=== PATIENT | female | born 1935 | race Caucasian/White ===

== ENCOUNTER 2017-01-16 05:55 | Inpatient (IN) | payer OTHER ==
[2017-01-16] MEDS ORDERED: NS 1,000 ML IV ONE (05:59)
--- NOTE | 2017-01-16 05:59 | EDPHY ---
H & P HPI/ROS: HPI CHIEF COMPLAINT: Vomiting, recent fall, possibly UTI HISTORY OF PRESENT ILLNESS: This patient very pleasant 81-year-old female presents emergency room by EMS from [facility] after staff became concerned after she vomited. Staff became concerned there was blood in her vomit however EMS arrived did see her vomit and they state that she had no blood. She did have a recent fall yesterday sustaining a laceration to the right lateral elbow which was repaired by the nurse on staff there. She had Steri-Strips in place. Unclear if she hit her head. It Is also noted by EMS that she has a foul smell of urine in her room and possible has a urinary tract infection. The history review of systems limited due to patient having severe dementia. The patient is noted to have 2 lacerations right lateral elbow with Steri- Strips in place also ecchymosis over the right lateral hip. No evidence of head trauma. Per EMS and staff she is at her neurological baseline. Of note this patient does have a MOST form: No CPR. Limited other Interventions. Past Medical History: Dementia Past Surgical History: No recent pertinent surgical history. Social History: Lives at [facility] Family History: Noncontributory ROS REVIEW OF SYSTEMS: This limited due to patient's underlying mental state Exam Constitutional triage nursing summary reviewed, vital signs reviewed, awake/ alert. Eyes normal conjunctivae and sclera, EOMI, PERRLA. HENT normal inspection, atraumatic, moist mucus membranes, no epistaxis, neck supple/ no meningismus, no raccoon eyes. Respiratory clear to auscultation bilaterally, normal breath sounds, no respiratory distress, no wheezing. Cardiovascular rate normal, regular rhythm, no murmur, no edema, distal pulses normal. Gastrointestinal soft, non-tender, no rebound, no guarding, normal bowel sounds, no distension, no pulsatile mass. Genitourinary no CVA tenderness. Musculoskeletal no midline vertebral tenderness, full range of motion, no calf swelling, no tenderness of extremities, no meningismus, good pulses, neurovascularly intact. Skin lacerations 2 of them on the right lateral elbow with Steri-Strips in place, no signs of infection, also ecchymosis right lateral hip, pink, warm, & dry, no rash, skin atraumatic. Neurologic awake, alert and oriented x 1, AAOx1, moves all 4 extremities equally, motor intact, sensory intact, CN II-XII intact, normal cerebellar, normal vision, normal speech. Psychiatric normal mood/affect. Heme/Lymph/Immune no lymphadenopathy. Differential Diagnosis:Includes but is not limited to in a particular order, dehydration, electrolyte abnormality, urinary tract infection, vomiting from recent fall with head injury, elbow fracture, hip fracture Medical Decision Making: This patient had an IV established obtain blood work, she will be gently hydrated, will check urinalysis for UTI, patient had a CT scan of the head due to recent fallen vomiting, x-ray of the right elbow on x- ray the right hip. Re-evaluation: ED x-ray right elbow: Negative For acute fracture. Image interpreted by myself. ED x-ray right hip: Negative for acute fracture. Image interpreted by myself. CT scan of the Head w/o contrast for trauma. The results of the study are negative for acute traumatic abnormality The study was read by Dr. Tamez. I viewed the images myself on the PACS system. 0719: patient's urinalysis indicates that she has a urinary tract infection. Urine cultures been sent. 2 g IV Rocephin has been ordered. This time she is hemodynamically stable no fever, no evidence of sepsis. 0746: Spoke with the hospitalist service Arin C[employer]SEM[employer]ER, agrees to admit the patient patient be admitted for dehydration, nausea vomiting and UTI. Urine cultures been sent she has been afebrile here does have a mild leukocytosis. Given her state of dementia, dehydration generalized weakness and urinary tract infection should be admitted to the hospitalist service for IV hydration and antibiotic coverage of her UTI. Here in the emergency room she received 2 g IV Rocephin, IV fluids and IV Zofran she is resting comfortably at this time no complaints. She does have severe dementia. Limited history review of systems due to underlying mental status. Source: Patient, EMS Constitutional: Initial Vital Signs Temperature (C) 36.4 C 01/16/17 05:55 Heart Rate 69 01/16/17 05:55 Respiratory Rate 18 01/16/17 05:55 Blood Pressure 172/51 H 01/16/17 05:55 O2 Sat (%) 94 01/16/17 05:55 O2 Delivery Mode Nasal Cannula O2 (L/minute) 2 Allergies/Adverse Reactions: Sulfa (Sulfonamide Antibiotics) Allergy (Verified 01/16/17 06:11) Home Medications: Medication Instructions Recorded Dulcolax 01/16/17 Lexapro 01/16/17 MOTRIN 01/16/17 Multi-Vitamin Daily 01/16/17 Rivastigmine 01/16/17 Sennosides 01/16/17 Tussin 01/16/17 Vitamin B Complex 01/16/17 Medical Decision Making - Data Points Laboratory Results: Laboratory Results 01/16/17 06:00 01/16/17 06:00 01/16/17 01/16/17 01/16/17 06:45 06:00 06:00 WBC 11.45 10^3/uL H 10^3/uL (3.80-9.50) RBC 4.68 10^6/uL 10^6/uL (4.18-5.33) Hgb 13.7 g/dL g/dL (12.6-16.3) Hct 41.2 % % (38.0-47.0) MCV 88.0 fL fL (81.5-99.8) MCH 29.3 pg pg (27.9-34.1) MCHC 33.3 g/dL g/dL (32.4-36.7) RDW 13.7 % % (11.5-15.2) Plt Count 291 10^3/uL 10^3/uL (150-400) MPV 9.6 fL fL (8.7-11.7) Neut % (Auto) 83.1 % H % (39.3-74.2) Lymph % (Auto) 10.1 % L % (15.0-45.0) Cloud % (Auto) 6.2 % % (4.5-13.0) Eos % (Auto) 0.0 % L % (0.6-7.6) Baso % (Auto) 0.2 % L % (0.3-1.7) Nucleat RBC Rel Count 0.0 % % (0.0-0.2) Absolute Neuts (auto) 9.51 10^3/uL H 10^3/uL (1.70-6.50) Absolute Lymphs (auto) 1.16 10^3/uL 10^3/uL (1.00-3.00) Absolute Monos (auto) 0.71 10^3/uL 10^3/uL (0.30-0.80) Absolute Eos (auto) 0.00 10^3/uL L 10^3/uL (0.03-0.40) Absolute Basos (auto) 0.02 10^3/uL 10^3/uL (0.02-0.10) Absolute Nucleated RBC 0.00 10^3/uL 10^3/uL (0-0.01) Immature Gran % 0.4 % % (0.0-1.1) Immature Gran # 0.05 10^3/uL 10^3/uL (0.00-0.10) Sodium 139 mEq/L mEq/L (134-144) Potassium 5.0 mEq/L mEq/L (3.5-5.2) Chloride 102 mEq/L mEq/L (97-110) Carbon Dioxide 25 mEq/l mEq/l (22-31) Anion Gap 12 mEq/L mEq/L (8-16) BUN 30 mg/dL H mg/dL (7-23) Creatinine 1.0 mg/dL mg/dL (0.6-1.0) Estimated GFR 53 Glucose 142 mg/dL H mg/dL (70-100) Calcium 9.6 mg/dL mg/dL (8.5-10.4) Total Bilirubin 0.9 mg/dL mg/dL (0.1-1.4) Conjugated Bilirubin 0.3 mg/dL mg/dL (0.0-0.5) Unconjugated Bilirubin 0.6 mg/dL mg/dL (0.0-1.1) AST 29 IU/L IU/L (14-46) ALT 28 IU/L IU/L (9-52) Alkaline Phosphatase 64 IU/L IU/L (38-126) Total Protein 7.7 g/dL g/dL (6.3-8.2) Albumin 4.5 g/dL g/dL (3.5-5.0) Lipase 347.0 IU/L H IU/L (23-300) Urine Color LT. YELLOW Urine Appearance CLOUDY Urine pH 8.0 H (5.0-7.5) Ur Specific [place] 1.010 (1.002-1.030) Urine Protein NEGATIVE (NEGATIVE) Urine Ketones NEGATIVE (NEGATIVE) Urine Blood 3+ H (NEGATIVE) Urine Nitrate NEGATIVE (NEGATIVE) Urine Bilirubin NEGATIVE (NEGATIVE) Urine Urobilinogen 0.2 EU EU (0.2-1.0) Ur Leukocyte Esterase 2+ H (NEGATIVE) Urine RBC 3-5 /hpf H /hpf (0-3) Urine WBC 15-25 /hpf H /hpf (0-3) Ur Epithelial Cells 1+ /lpf /lpf (NONE-1+) Urine Bacteria TRACE /hpf H /hpf (NONE SEEN) Urine Mucus 2+ /lpf H /lpf (NONE-1+) Ur Culture Indicated? INDICATED H (NI) Urine Glucose NEGATIVE (NEGATIVE) Medications Given: Discontinued Medications Sodium Chloride (Ns) 1,000 mls @ 0 mls/hr IV ONCE ONE PRN Reason: Wide Open Stop: 01/16/17 06:00 Last Admin: 01/16/17 06:57 Dose: 1,000 mls Ceftriaxone Sodium 2 gm/ (Dextrose) 50 mls @ 100 mls/hr IV EDNOW ONE PRN Reason: Protocol Stop: 01/16/17 07:21 Last Admin: 01/16/17 07:28 Dose: 50 mls Ondansetron HCl (Zofran) 4 mg IVP EDNOW ONE Stop: 01/16/17 06:02 Last Admin: 01/16/17 06:57 Dose: 4 mg Departure - Departure Disposition: Home, Routine, Self-Care Clinical Impression: Dehydration Vomiting Qualifiers: Vomiting type: unspecified Vomiting Intractability: intractable Nausea presence : with nausea Qualified Code(s): R11.2 - Nausea with vomiting, unspecified UTI (urinary tract infection) Qualifiers: Urinary tract infection type: acute cystitis Hematuria presence: with hematuria Qualified Code(s): N30.01 - Acute cystitis with hematuria Condition: Good Referrals: Dallas So MD [Primary Care Provider] - As per Instructions
[2017-01-16] MEDS ORDERED: ONDANSETRON 4 MG/2 ML VIAL IVP ONE (06:01)
[2017-01-16 06:23] LABS: % IMMATURE GRANULYOCYTES 0.4 % (0.0-1.1); ABSOLUTE IMMATURE GRANULOCYTES 0.05 10^3/uL (0.00-0.10); ADD DIFF? NO; ADD MORPH? NO; ADD SCAN? NO; ATYPICAL LYMPHOCYTE FLAG 0 (0-99); FRAGMENT RBC FLAG 0 (0-99); HEMATOCRIT 41.2 % (38.0-47.0); HEMOGLOBIN 13.7 g/dL (12.6-16.3); LEFT SHIFT FLG 0 (0-99); LIPEMIA HEMOLYSIS FLAG 80 (0-99); MEAN CELL HEMOGLOBIN 29.3 pg (27.9-34.1); MEAN CELL HEMOGLOBIN CONCENTR. 33.3 g/dL (32.4-36.7); MEAN PLATELET VOLUME 9.6 fL (8.7-11.7); PLATELET CLUMPS FLAG 20 (0-99); PLATELET COUNT 291 10^3/uL (150-400); RED BLOOD CELL COUNT 4.68 10^6/uL (4.18-5.33); RED CELL DISTRIBUTION WIDTH 13.7 % (11.5-15.2)
[2017-01-16] MEDS ORDERED: cefTRIAXone 2 GM in D5W 50 ML IV ONE (06:52)
[2017-01-16 06:57] LABS: ALANINE AMINOTRANSFERASE 28 IU/L (9-52); ALBUMIN 4.5 g/dL (3.5-5.0); ALKALINE PHOSPHATASE 64 IU/L (38-126); ANION GAP 12 mEq/L (8-16); ASPARTATE AMINOTRANSFERASE 29 IU/L (14-46); BILIRUBIN,TOTAL 0.9 mg/dL (0.1-1.4); BILIRUBIN-CONJUGATED 0.3 mg/dL (0.0-0.5); BILIRUBIN-UNCONJUGATED 0.6 mg/dL (0.0-1.1); CALCIUM 9.6 mg/dL (8.5-10.4); CARBON DIOXIDE 25 mEq/l (22-31); CHLORIDE 102 mEq/L (97-110); GLOMERULAR FILTRATION RATE 53; GLUCOSE 142 mg/dL (70-100); SODIUM 139 mEq/L (134-144); TOTAL PROTEIN 7.7 g/dL (6.3-8.2)
[2017-01-16 07:17] LABS: COLOR LT. YELLOW; LEUKOCYTE ESTERASE,URINE 2+ (NEGATIVE); NITRITE,URINE NEGATIVE (NEGATIVE)
[2017-01-16 07:23] LABS: MUCUS 2+ /lpf (NONE-1+)
[2017-01-16 07:24] LABS: BACTERIA TRACE /hpf (NONE SEEN); WBC,URINE 15-25 /hpf (0-3)
[2017-01-16] MEDS ORDERED: ONDANSETRON DISINTEGRATING 4 MG TAB PO PRN (10:45)
[2017-01-16] MEDS ORDERED: ONDANSETRON 4 MG/2 ML VIAL IVP PRN (10:45)
[2017-01-16] MEDS ORDERED: ACETAMINOPHEN 325 MG TAB PO PRN (10:45)
[2017-01-16] MEDS ORDERED: NS 1,000 ML IV SCH (10:45)
--- NOTE | 2017-01-16 10:58 | PDGENHP ---
History and Physical - Chief Complaint VOMITING - History of Present Illness 81 YO F with hx of advanced dementia who lives at [facility] brought into the hospital with weakness and vomiting. She was found to have dehydration and a UTI in the E.D. and started on Rocephin and IVF. No further emesis. She had a mechanical fall reported yesterday. Unclear if there was LOC. Imaging including Head CT unremarkable. History is difficult as the pt has advance dementia. Her home care physical therapist is with her but PMHx is still limited. She denies any pain, nausea, vomiting, CP, or other. ROS: per HPI otherwise unable to obtain PMHx: Advance dementia, presumed depression (based on home meds) PSurgicalHx: unknown Soc: unknown. Lives at [facility] FmHx: unknown O: VS: HTN NAD, APPEARS COMFORTABLE RRR MM DRY CTA B S/NT/ND NO EDEMA LABS REVIEWED I/P #UTI #DEHYDRATION #HTN, UNCLEAR CHRONICITY. 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 W/U OTHERWISE WITH NO FURTHER EVIDENCE OF TRAUMA #ADVANCE DEMENTIA #NAUSE AND VOMITING #Depression PLAN: Admit Rocephin, await cultures IVF Antiemetics PT/OT home meds as appropriate Lovenox for DVT proph code status: unclear total care time spent on admission is one hour History Information - Allergies/Home Medication List Allergies/Adverse Reactions: Sulfa (Sulfonamide Antibiotics) Allergy (Verified 01/16/17 06:11) Home Medications: Acetaminophen [Tylenol 325mg (*)] 650 mg PO Q4H PRN 01/16/17 [Last Taken Unknown ] Bisacodyl [Dulcolax] 10 mg RC Q24H 01/16/17 [Last Taken Unknown] Calcium Carb W/Vit D [Calcium Carb W/Vit D 500/200 (*)] 500 mg PO DAILY [Last Taken Unknown] Citalopram [CeleXA] 20 mg PO DAILY 01/16/17 [Last Taken Unknown] Cyanocobalamin [Vitamin B12 (*)] 1,000 mcg PO DAILY 01/16/17 [Last Taken Unknown ] Ibuprofen [Motrin (*)] 400 mg PO Q8H PRN 01/16/17 [Last Taken Unknown] Levothyroxine [Synthroid 50 mcg (*)] 50 mcg PO DAILY06 01/16/17 [Last Taken Unknown] Lisinopril [Zestril 10 mg (*)] 10 mg PO DAILY 01/16/17 [Last Taken Unknown] Multivitamins [Multivitamin (*)] 1 each PO DAILY 01/16/17 [Last Taken Unknown] QUEtiapine FUMARATE [Seroquel 25 mg (*)] 25 mg PO HS 01/16/17 [Last Taken Unknown] Rivastigmine 1 each TD DAILY 01/16/17 [Last Taken Unknown] Sennosides [Senokot] 8.6 mg PO Q3D PRN 01/16/17 [Last Taken Unknown] guaiFENesin/CODEINE PHOSPHATE [G Tussin AC Liquid] 10 ml PO Q4H PRN 01/16/17 [ Last Taken Unknown] I have personally reviewed and updated: medical history - Social History Smoking Status: Unknown if ever smoked Physical Exam Temp Pulse Resp BP Pulse Ox 36.5 C 78 18 184/127 H 99 01/16/17 09:09 01/16/17 09:09 01/16/17 09:09 01/16/17 09:09 01/16/17 09:09 O2 (L/minute) 2 Lab Data & Imaging Review 01/16/17 06:00 01/16/17 06:00 WBC 11.45 10^3/uL (3.80-9.50) H 01/16/17 06:00 RBC 4.68 10^6/uL (4.18-5.33) 01/16/17 06:00 Hgb 13.7 g/dL (12.6-16.3) 01/16/17 06:00 Hct 41.2 % (38.0-47.0) 01/16/17 06:00 MCV 88.0 fL (81.5-99.8) 01/16/17 06:00 MCH 29.3 pg (27.9-34.1) 01/16/17 06:00 MCHC 33.3 g/dL (32.4-36.7) 01/16/17 06:00 RDW 13.7 % (11.5-15.2) 01/16/17 06:00 Plt Count 291 10^3/uL (150-400) 01/16/17 06:00 MPV 9.6 fL (8.7-11.7) 01/16/17 06:00 Neut % (Auto) 83.1 % (39.3-74.2) H 01/16/17 06:00 Lymph % (Auto) 10.1 % (15.0-45.0) L 01/16/17 06:00 [place] % (Auto) 6.2 % (4.5-13.0) 01/16/17 06:00 Eos % (Auto) 0.0 % (0.6-7.6) L 01/16/17 06:00 Baso % (Auto) 0.2 % (0.3-1.7) L 01/16/17 06:00 Nucleat RBC Rel Count 0.0 % (0.0-0.2) 01/16/17 06:00 Absolute Neuts (auto) 9.51 10^3/uL (1.70-6.50) H 01/16/17 06:00 Absolute Lymphs (auto) 1.16 10^3/uL (1.00-3.00) 01/16/17 06:00 Absolute Monos (auto) 0.71 10^3/uL (0.30-0.80) 01/16/17 06:00 Absolute Eos (auto) 0.00 10^3/uL (0.03-0.40) L 01/16/17 06:00 Absolute Basos (auto) 0.02 10^3/uL (0.02-0.10) 01/16/17 06:00 Absolute Nucleated RBC 0.00 10^3/uL (0-0.01) 01/16/17 06:00 Immature Gran % 0.4 % (0.0-1.1) 01/16/17 06:00 Immature Gran # 0.05 10^3/uL (0.00-0.10) 01/16/17 06:00 Sodium 139 mEq/L (134-144) 01/16/17 06:00 Potassium 5.0 mEq/L (3.5-5.2) 01/16/17 06:00 Chloride 102 mEq/L (97-110) 01/16/17 06:00 Carbon Dioxide 25 mEq/l (22-31) 01/16/17 06:00 Anion Gap 12 mEq/L (8-16) 01/16/17 06:00 BUN 30 mg/dL (7-23) H 01/16/17 06:00 Creatinine 1.0 mg/dL (0.6-1.0) 01/16/17 06:00 Estimated GFR 53 01/16/17 06:00 Glucose 142 mg/dL (70-100) H 01/16/17 06:00 Calcium 9.6 mg/dL (8.5-10.4) 01/16/17 06:00 Total Bilirubin 0.9 mg/dL (0.1-1.4) 01/16/17 06:00 Conjugated Bilirubin 0.3 mg/dL (0.0-0.5) 01/16/17 06:00 Unconjugated Bilirubin 0.6 mg/dL (0.0-1.1) 01/16/17 06:00 AST 29 IU/L (14-46) 01/16/17 06:00 ALT 28 IU/L (9-52) 01/16/17 06:00 Alkaline Phosphatase 64 IU/L (38-126) 01/16/17 06:00 Total Protein 7.7 g/dL (6.3-8.2) 01/16/17 06:00 Albumin 4.5 g/dL (3.5-5.0) 01/16/17 06:00 Lipase 347.0 IU/L (23-300) H 01/16/17 06:00 Urine Color LT. YELLOW 01/16/17 06:45 Urine Appearance CLOUDY 01/16/17 06:45 Urine pH 8.0 (5.0-7.5) H 01/16/17 06:45 Ur Specific [place] 1.010 (1.002-1.030) 01/16/17 06:45 Urine Protein NEGATIVE (NEGATIVE) 01/16/17 06:45 Urine Ketones NEGATIVE (NEGATIVE) 01/16/17 06:45 Urine Blood 3+ (NEGATIVE) H 01/16/17 06:45 Urine Nitrate NEGATIVE (NEGATIVE) 01/16/17 06:45 Urine Bilirubin NEGATIVE (NEGATIVE) 01/16/17 06:45 Urine Urobilinogen 0.2 EU (0.2-1.0) 01/16/17 06:45 Ur Leukocyte Esterase 2+ (NEGATIVE) H 01/16/17 06:45 Urine RBC 3-5 /hpf (0-3) H 01/16/17 06:45 Urine WBC 15-25 /hpf (0-3) H 01/16/17 06:45 Ur Epithelial Cells 1+ /lpf (NONE-1+) 01/16/17 06:45 Urine Bacteria TRACE /hpf (NONE SEEN) H 01/16/17 06:45 Urine Mucus 2+ /lpf (NONE-1+) H 01/16/17 06:45 Ur Culture Indicated? INDICATED (NI) H 01/16/17 06:45 Urine Glucose NEGATIVE (NEGATIVE) 01/16/17 06:45 Assessment & Plan Assessment: Dehydration (Acute) UTI (urinary tract infection) (Acute) Vomiting (Acute)
[2017-01-16] MEDS: BISACODYL 10 MG SUPP PR SCH (12:05)
[2017-01-16] MEDS: IPRATROPIUM/ALBUTEROL 3 ML DEYVIAL IH SCH ×2 (13:23→15:19)
[2017-01-16] MEDS: LISINOPRIL 10 MG TAB PO SCH (16:12)
[2017-01-16] MEDS: LEVOTHYROXINE 50 MCG TAB PO SCH (16:12)
[2017-01-16] MEDS: QUEtiapine FUMARATE 25 MG TAB PO SCH (20:47)
--- NOTE | 2017-01-16 21:47 | SOAPPROG ---
DARINEL Progress Note Assessment/Plan: Assessment: Plan: 01/16/17 21:42 81 YO F with hx of advanced dementia who lives at [facility]. Report of a fall yesterday. She was scanned for Right side, Hip, Elbow, shoulder. NV is intact per exam in the ED. Xr shows fracture of right humerus base of neck, with shortening and angulation. She can move fingers and (per nurse in the floor at 21:00) is well managed pain [place], and doesn't complain, although guarding the limb. She answers "No" for questions regarding pain at rest. Due to her dementia and type of fracture, this should be managed conservatively , with a sling. We will follow up on her again tomorrow morning. Dr Danielle Objective: Vital Signs Temp Pulse Resp BP Pulse Ox 37.2 C 74 18 145/52 H 95 01/16/17 21:15 01/16/17 21:15 01/16/17 21:15 01/16/17 21:15 01/16/17 21:15 01/15/17 01/16/17 01/17/17 05:59 05:59 05:59 Intake Total 1312 Balance 1312 ICD10 Worksheet Patient Problems: Problems Problem Status Onset Dehydration Acute UTI (urinary tract infection) Acute Vomiting Acute
[2017-01-17] MEDS: IPRATROPIUM/ALBUTEROL 3 ML DEYVIAL IH SCH ×2 (00:01→06:04)
[2017-01-17] MEDS: LEVOTHYROXINE 50 MCG TAB PO SCH ×2 (05:53→06:00)
[2017-01-17] MEDS: HYDROCODONE/APAP 5/325 TAB PO PRN ×2 (05:55→10:45)
[2017-01-17 06:04] LABS: % IMMATURE GRANULYOCYTES 0.4 % (0.0-1.1); ABSOLUTE IMMATURE GRANULOCYTES 0.03 10^3/uL (0.00-0.10); ADD DIFF? NO; ADD MORPH? NO; ADD SCAN? NO; ATYPICAL LYMPHOCYTE FLAG 10 (0-99); FRAGMENT RBC FLAG 0 (0-99); HEMATOCRIT 35.1 % (38.0-47.0); HEMOGLOBIN 11.6 g/dL (12.6-16.3); LEFT SHIFT FLG 0 (0-99); LIPEMIA HEMOLYSIS FLAG 80 (0-99); MEAN CELL HEMOGLOBIN 28.6 pg (27.9-34.1); MEAN CELL VOLUME 86.5 fL (81.5-99.8); MEAN PLATELET VOLUME 9.7 fL (8.7-11.7); PLATELET CLUMPS FLAG 10 (0-99); PLATELET COUNT 240 10^3/uL (150-400); RED BLOOD CELL COUNT 4.06 10^6/uL (4.18-5.33); RED CELL DISTRIBUTION WIDTH 14.1 % (11.5-15.2)
[2017-01-17 06:25] LABS: ANION GAP 6 mEq/L (8-16); CALCIUM 8.9 mg/dL (8.5-10.4); CARBON DIOXIDE 27 mEq/l (22-31); CHLORIDE 105 mEq/L (97-110); CREATININE 0.9 mg/dL (0.6-1.0); GLOMERULAR FILTRATION RATE > 60; GLUCOSE 99 mg/dL (70-100); MAGNESIUM 1.9 mg/dL (1.6-2.3); POTASSIUM 4.5 mEq/L (3.5-5.2); SODIUM 138 mEq/L (134-144)
[2017-01-17] MEDS: LISINOPRIL 10 MG TAB PO SCH (08:45)
[2017-01-17] MEDS: CITALOPRAM 20 MG TAB PO SCH (08:51)
[2017-01-17] MEDS: CYANO/VITAMIN B12 1000 MCG TAB PO SCH (08:53)
[2017-01-17] MEDS: CALCIUM CARB W/VIT D 500 MG TAB PO SCH (08:53)
[2017-01-17] MEDS: ENOXAPARIN 40 MG/0.4 ML SYR SC SCH (08:54)
[2017-01-17] MEDS: RIVASTIGMINE TD SCH (08:56)
--- NOTE | 2017-01-17 09:27 | HOSPPROG ---
Hospitalist Progress Note Assessment/Plan: I/P #UTI #DEHYDRATION #HTN, UNCLEAR CHRONICITY. 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 Conservative mgmt given advanced dementia. Sling. Pain is well controlled #ADVANCE DEMENTIA #NAUSE AND VOMITING #DEPRESSION PLAN: Rocephin, await cultures IVF, finish IVF as ordered Antiemetics Conservative ortho mgmt PT/OT home meds as appropriate Lovenox for DVT proph S: Doing well No pain reported O: VSS NAD AAOx3 RRR CTAB S/NT/ND LABS: REVIEWED Objective: Vital Signs Temp Pulse Resp BP Pulse Ox 36.9 C 64 65 H 158/102 H 95 01/17/17 08:00 01/17/17 08:00 01/17/17 08:00 01/17/17 08:45 01/17/17 08:00 Laboratory Results 01/17/17 05:23 01/17/17 05:23 01/16/17 01/17/17 01/18/17 05:59 05:59 05:59 Intake Total 1312 Balance 1312 ICD10 Worksheet Patient Problems: Problems Problem Status Onset Dehydration Acute UTI (urinary tract infection) Acute Vomiting Acute
--- NOTE | 2017-01-17 10:12 | SOAPPROG ---
DARINEL Progress Note Assessment/Plan: Assessment: 81 YO F with hx of advanced dementia. Fell and sustained Right proximal humerus fracture. Plan: Due to her dementia and type of fracture, this should be managed conservatively , with a sling. Pt can follow-up with Dr. Danielle in 4 weeks. 01/17/17 10:12 Subjective: Pt demented, not responding much to questions. She does say "No" when asked if she has pain. Objective: Vital Signs Temp Pulse Resp BP Pulse Ox 36.9 C 64 65 H 158/102 H 95 01/17/17 08:00 01/17/17 08:00 01/17/17 08:00 01/17/17 08:45 01/17/17 08:00 Laboratory Results 01/17/17 05:23 01/17/17 05:23 01/16/17 01/17/17 01/18/17 05:59 05:59 05:59 Intake Total 1312 Balance 1312 RUE: Palpable radial pulse Moves fingers on command Does not respond when asked about sensation Sling in place - Time Spent With Patient Time Spent With Patient: 10 minutes ICD10 Worksheet Patient Problems: Problems Problem Status Onset Vomiting Acute UTI (urinary tract infection) Acute Dehydration Acute
[2017-01-17] MEDS: BISACODYL 10 MG SUPP PR SCH (12:55)
[2017-01-17] MEDS: LORazepam 2 MG/ML INJ IVP PRN (16:33)
[2017-01-17] MEDS: hydrALAZINE 20 MG/ML VIAL IVP PRN (17:31)
[2017-01-17] MEDS: QUEtiapine FUMARATE 25 MG TAB PO SCH (20:13)
[2017-01-18] MEDS: LEVOTHYROXINE 50 MCG TAB PO SCH (06:06)
[2017-01-18] MEDS: HYDROCODONE/APAP 5/325 TAB PO PRN (06:06)
--- NOTE | 2017-01-18 10:30 | HOSPPROG ---
Hospitalist Progress Note Assessment/Plan: I/P 81 yo female with advance dementia admitted following a reported mechanical fall with weakness and worsening mentation. She was found to have dehydration, UTI, and R proximal humerus fracture. Hydration status is now normal. She is being treated with Rocephin for UTI and cx's are pending. The Humerus fx is being treated conservatively and she will need f/u with Dr. Ríos in 4 weeks. Today she continues to have some weakness and will be kept overnight for additional mgmt including IV abx and PT/OT. She will likely be ready for discharge 12/30. #UTI, On Rocephin Day 3, can likely stop on discharge #DEHYDRATION, resolved, IVF to stop #HTN (chronic), on Lisinopril #WEAKNESS AND DECONDITIONING, improving with PT/OT #S/P REPORTED MECHANICAL WITH LACERATION TO RIGHT ELBOW & PROXIMAL RIGHT FEMUR FRACTURE -Fracture mgmt per Ortho. Conservative mgmt given advanced dementia. Sling. Pain is well controlled #ADVANCE DEMENTIA, Lives in a dementia unit #NAUSE AND VOMITING, resolved #HYPOTHYROIDISM: on synthroid #DEPRESSION #Lovenox for DVT proph S: The patient is resting currently No overnight events No pain reported Her caregiver is at bedside. She reports that she is improving but still weak and would like additional PT before discharge. She is also requesting that we minimize her narcotics if they are not needed. O: VSS and reviewed NAD Mucus Membranes are moist RRR CTAB S/NT/ND No lower extremity edema Objective: Vital Signs Temp Pulse Resp BP Pulse Ox 36.4 C 65 14 110/52 L 92 01/18/17 08:00 01/18/17 08:00 01/18/17 08:00 01/18/17 08:00 01/18/17 08:00 Laboratory Results 01/17/17 05:23 01/17/17 05:23 01/17/17 01/18/17 01/19/17 05:59 05:59 05:59 Intake Total 1312 100 Balance 1312 100 - Time Spent With Patient Time Spent with Patient: greater than 35 minutes Time Spent with Patient: Greater than 35 minutes spent on this patients care, greater than 50% of time spent counseling, educating, and coordinating care regarding the above mentioned plan. - Physical Exam Constitutional: no apparent distress, appears nourished, not in pain Eyes: PERRL, anicteric sclera, EOMI Ears, Nose, Mouth, Throat: moist mucous membranes, hearing normal, ears appear normal, no oral mucosal ulcers Genitourinary: no bladder fullness, no bladder tenderness, no renal bruits Skin: no rashes or abrasions, no fluctuance, no induration ICD10 Worksheet Patient Problems: Problems Problem Status Onset Dehydration Acute UTI (urinary tract infection) Acute Vomiting Acute
[2017-01-18] MEDS: LISINOPRIL 10 MG TAB PO SCH (12:29)
[2017-01-18] MEDS: CITALOPRAM 20 MG TAB PO SCH (12:30)
[2017-01-18] MEDS: ENOXAPARIN 40 MG/0.4 ML SYR SC SCH (12:34)
[2017-01-18] MEDS: BISACODYL 10 MG SUPP PR SCH (12:37)
[2017-01-18] MEDS: CALCIUM CARB W/VIT D 500 MG TAB PO SCH (12:37)
[2017-01-18] MEDS: CYANO/VITAMIN B12 1000 MCG TAB PO SCH (12:37)
[2017-01-18] MEDS: RIVASTIGMINE TD SCH (13:24)
[2017-01-18] MEDS: LORazepam 2 MG/ML INJ IVP PRN (16:17)
[2017-01-18] MEDS: QUEtiapine FUMARATE 25 MG TAB PO SCH (21:01)
[2017-01-19] MEDS: LEVOTHYROXINE 50 MCG TAB PO SCH (06:46)
[2017-01-19] MEDS: CALCIUM CARB W/VIT D 500 MG TAB PO SCH (09:59)
[2017-01-19] MEDS: CYANO/VITAMIN B12 1000 MCG TAB PO SCH (09:59)
[2017-01-19] MEDS: CITALOPRAM 20 MG TAB PO SCH (09:59)
[2017-01-19] MEDS: LISINOPRIL 10 MG TAB PO SCH (09:59)
[2017-01-19] MEDS: ENOXAPARIN 40 MG/0.4 ML SYR SC SCH (10:00)
[2017-01-19] MEDS: RIVASTIGMINE TD SCH (10:01)
[2017-01-19] MEDS: BISACODYL 10 MG SUPP PR SCH (10:28)
[2017-01-19] MEDS: LORazepam 2 MG/ML INJ IVP PRN ×2 (11:12→17:26)
[2017-01-19] MEDS: HYDROCODONE/APAP 5/325 TAB PO PRN ×3 (11:12→22:36)
[2017-01-19] MEDS: CHOLECALCIFEROL VIT D3 1,000 UNITS TAB PO SCH (17:26)
[2017-01-19] MEDS: NS 1,000 ML IV SCH (22:35)
[2017-01-19] MEDS: QUEtiapine FUMARATE 25 MG TAB PO SCH (22:36)
[2017-01-20] MEDS: NS 1,000 ML IV SCH (05:17)
[2017-01-20] MEDS: LEVOTHYROXINE 50 MCG TAB PO SCH (05:17)
--- NOTE | 2017-01-20 09:07 | HOSPPROG ---
Hospitalist Progress Note Assessment/Plan: 81 yo female with advance dementia admitted following a reported mechanical fall with weakness and worsening mentation. She was found to have dehydration, UTI, and R proximal humerus fracture. Hydration status is now normal. She is being treated with Rocephin for UTI and cx's are pending. The Humerus fx is being treated conservatively and she will need f/u with Dr. Ríos in 4 weeks. Today she continues to have some weakness and will be kept overnight for additional mgmt including IV abx and PT/OT. She will likely be ready for discharge 12/30. UTI, On Rocephin Day 02/27, can likely stop on discharge URINE CULTURE NOT NECESSARILY C/W INFECTION DEHYDRATION, resolved, dc IVF HTN (chronic), on Lisinopril WEAKNESS AND DECONDITIONING, improving with PT/OT S/P REPORTED MECHANICAL WITH LACERATION TO RIGHT ELBOW & PROXIMAL RIGHT FEMUR FRACTURE Fracture mgmt per Ortho. Conservative mgmt given advanced dementia. Sling. Pain is well controlled hand neurovascularly intact ADVANCE DEMENTIA, Lives in a dementia unit NAUSE AND VOMITING, resolved HYPOTHYROIDISM: on synthroid DEPRESSION Lovenox for DVT proph Subjective: THIS NOTE IS FOR DATE OF SERVICE 01/19/17! Objective: Vital Signs Temp Pulse Resp BP Pulse Ox 35.8 C L 63 16 173/64 H 91 L 01/20/17 08:38 01/20/17 08:38 01/20/17 08:38 01/20/17 08:38 01/20/17 08:38 01/19/17 01/20/17 01/21/17 05:59 05:59 05:59 Intake Total 1536 1175 Balance 1536 1175 - Physical Exam Constitutional: no apparent distress Eyes: PERRL, anicteric sclera Ears, Nose, Mouth, Throat: hearing normal Cardiovascular: regular rate and rhythym, no murmur, rub, or gallop Respiratory: no respiratory distress, no rales or rhonchi Gastrointestinal: normoactive bowel sounds, soft, non-tender abdomen Genitourinary: No bedoya in urethra Skin: warm Musculoskeletal: other (r HAND NEUROVASCULARLY INTacT) Neurologic: sensation intact bilaterally, No AAOx3 Psychiatric: No interacting appropriately ICD10 Worksheet Patient Problems: Problems Problem Status Onset Dehydration Acute UTI (urinary tract infection) Acute Vomiting Acute
[2017-01-20] MEDS: CITALOPRAM 20 MG TAB PO SCH (09:35)
[2017-01-20] MEDS: CALCIUM CARB W/VIT D 500 MG TAB PO SCH (09:35)
[2017-01-20] MEDS: CYANO/VITAMIN B12 1000 MCG TAB PO SCH (09:35)
[2017-01-20] MEDS: LISINOPRIL 10 MG TAB PO SCH (09:35)
[2017-01-20] MEDS: CHOLECALCIFEROL VIT D3 1,000 UNITS TAB PO SCH (09:35)
[2017-01-20] MEDS: ENOXAPARIN 40 MG/0.4 ML SYR SC SCH (09:36)
[2017-01-20] MEDS: RIVASTIGMINE TD SCH (09:36)
[2017-01-20] MEDS: BISACODYL 10 MG SUPP PR SCH (10:12)
[2017-01-20] MEDS: LORazepam 2 MG/ML INJ IVP PRN (12:33)
[2017-01-20] MEDS: HYDROCODONE/APAP 5/325 TAB PO PRN ×2 (12:33→20:24)
--- NOTE | 2017-01-20 12:53 | HOSPPROG ---
Hospitalist Progress Note Assessment/Plan: 81 yo female with advance dementia admitted following a reported mechanical fall with weakness and worsening mentation. She was found to have dehydration, UTI, and R proximal humerus fracture. Hydration status is now normal. She is being treated with Rocephin for UTI and cx's are pending. The Humerus fx is being treated conservatively and she will need f/u with Dr. Ríos in 4 weeks. Today she continues to have some weakness and will be kept overnight for additional mgmt including IV abx and PT/OT. She will likely be ready for discharge 12/30. UTI, On Rocephin Day 03/29, can likely stop on discharge URINE CULTURE NOT NECESSARILY C/W INFECTION DEHYDRATION, resolved, dc IVF HTN (chronic), on Lisinopril WEAKNESS AND DECONDITIONING, improving with PT/OT S/P REPORTED MECHANICAL WITH LACERATION TO RIGHT ELBOW & PROXIMAL RIGHT FEMUR FRACTURE Fracture mgmt per Ortho. Conservative mgmt given advanced dementia. Sling. Pain is well controlled hand neurovascularly intact ADVANCE DEMENTIA, Lives in a dementia unit NAUSE AND VOMITING, resolved HYPOTHYROIDISM: on synthroid DEPRESSION Lovenox for DVT proph Subjective: no complaints Objective: Vital Signs Temp Pulse Resp BP Pulse Ox 35.8 C L 63 16 173/64 H 91 L 01/20/17 08:38 01/20/17 08:38 01/20/17 08:38 01/20/17 09:35 01/20/17 08:38 01/19/17 01/20/17 01/21/17 05:59 05:59 05:59 Intake Total 1536 1175 640 Balance 1536 1175 640 - Physical Exam Constitutional: no apparent distress, appears nourished Eyes: PERRL, anicteric sclera Ears, Nose, Mouth, Throat: moist mucous membranes, hearing normal Cardiovascular: regular rate and rhythym, no murmur, rub, or gallop Respiratory: no respiratory distress, no rales or rhonchi Gastrointestinal: normoactive bowel sounds, soft, non-tender abdomen Genitourinary: bedoya in urethra Skin: warm, normal color Musculoskeletal: other (r hand neurovascularly intact) ICD10 Worksheet Patient Problems: Problems Problem Status Onset Dehydration Acute UTI (urinary tract infection) Acute Vomiting Acute
[2017-01-20] MEDS: QUEtiapine FUMARATE 25 MG TAB PO SCH (20:24)
[2017-01-21] MEDS: LEVOTHYROXINE 50 MCG TAB PO SCH (05:44)
[2017-01-21] MEDS: CITALOPRAM 20 MG TAB PO SCH ×2 (08:54→10:07)
[2017-01-21] MEDS: LISINOPRIL 10 MG TAB PO SCH ×2 (08:54→10:09)
[2017-01-21] MEDS: CALCIUM CARB W/VIT D 500 MG TAB PO SCH ×2 (08:54→10:06)
[2017-01-21] MEDS: CYANO/VITAMIN B12 1000 MCG TAB PO SCH ×2 (08:54→10:07)
[2017-01-21] MEDS: CHOLECALCIFEROL VIT D3 1,000 UNITS TAB PO SCH ×2 (08:54→10:06)
[2017-01-21] MEDS: ENOXAPARIN 40 MG/0.4 ML SYR SC SCH (08:54)
[2017-01-21] MEDS: BISACODYL 10 MG SUPP PR SCH (11:37)
[2017-01-21] MEDS: ACETAMINOPHEN 325 MG TAB PO PRN ×2 (11:37→19:49)
--- NOTE | 2017-01-21 13:49 | HOSPPROG ---
Hospitalist Progress Note Assessment/Plan: 81 yo F with advanced dementia admitted s/p fall with UTI and proximal humeral fracture # UTI: with culture not clearly consistent with infection with 4 different colony types present, has been treated with 5 days of ctx and now off of abx # mechanical fall: occurred in memory care unit where patient has been residing and raising concerns that she may not be safe to return there. Will need at minimum a hospital bed as transferring is challenging. PT/OT/CM involved. # advanced dementia: patient dependent in all of her ADLs and essentially non verbal currently. Palliative to get involved and dispo is as above. # proximal right humeral fracture: with plan for conservative management given her baseline poor functional status, she is in a splint, f/u with ortho in 4 weeks # hypovolemia: s/p IVF resuscitation and resolved # n/v: resolved # leukocytosis: resolved, in setting of acute fracture and likely uti, stress versus infection # Dispo: IP status, will likely dc to snf versus hospice, palliative consult today per family's request Patient new to my care. Old records reviewed and summarized as above. Care plan reviewed with CM, further hx obtained from patients and caregiver present at bedside. Subjective: no significant overnight events, patient nonverbal Objective: Vital Signs Temp Pulse Resp BP Pulse Ox 36.4 C 55 L 15 151/95 H 93 01/21/17 08:00 01/21/17 08:00 01/21/17 08:00 01/21/17 10:09 01/21/17 08:00 01/20/17 01/21/17 01/22/17 05:59 05:59 05:59 Intake Total 1175 1640 Balance 1175 1640 awake non verbal anicteric mmm rrr no mrg cta b soft nt nd rue in sling no cce warm dry well perfused non verbal, moves all 4 spontaneosly - Time Spent With Patient Time Spent with Patient: greater than 35 minutes Time Spent with Patient: Greater than 35 minutes spent on this patients care, greater than 50% of time spent counseling, educating, and coordinating care regarding the above mentioned plan. ICD10 Worksheet Patient Problems: Problems Problem Status Onset Vomiting Acute UTI (urinary tract infection) Acute Dehydration Acute Palliative care encounter Acute
--- NOTE | 2017-01-21 15:06 | PDPCPN ---
Palliative Care Progress Note Assessment/Plan: Referring provider: Dr Conroy Reason for consult: Complex medical decision making Symptom control HPI: Maryellen Hamm is a 81 yo female with PMH dementia admitted to the hospital s/ p fall with dehydration, UTI, and new right humerus fracture. Antibiotics completed for UTI and re hydrated with IV fluids. Functional status is limited by right arm. Palliative care consulted for complex medical decision making. Met with Diego and caregiver Dina in the room this afternoon. Diego spoke of Maryellen Lyn as being an active/social person. They loved to travel and she enjoyed swimming and playing [place]. She moved into [facility] 1 year ago. She has had a caregiver for the past 1.5 years. They have noticed over the past year a decline in her functional status with increase in dementia. Most recently over the past 5 months she has declined more rapidly with verbal words diminished as well as not wanting to eat/drink anything. She now mostly has to be encouraged to eat and helped with eating. She has had a few falls but none with injuries prior to this current fall. She had been walking a few miles a year ago but now is limited to short distances though does not use a walker or cane. Diego stated they had never spoken of end of life wishes other than to not have a but a democrat. Discussed options including not rehospitalizing for future infections. Also discussed possibility of hospice care. Unsure if she will qualify but they are interested in meeting with [facility] to learn more. Assessment: Physical: - Pain: right arm pain - might consider scheduling tylenol to help - norco PRN - constipation - at risk with opiates - bowel regimen with senna and colace Emotional/psychological: occasional "crying fits" per family on celexa. on scheduled seroquel [facility] Advanced Care Planning: Is patient decisional?: no Code Status: DNR POA: Diego is MDPOA Plan: Interested in meeting with hospice. Plan is to go back home with increased support and either hospice or HHC. Subjective: it's windy out Objective: Social History: Worked as a sales department clerk. to [place] for 64 years. They have 5 children and many grand and great grandchildren. Enjoyed traveling to many places and being very active and social. Medication list reviewed ROS: General: fatigue, weakness, weight loss ENT: negative Resp: negatie GI: poor appetite : negative MS: right arm pain Skin: negative Neuro:negative Psych: confusion Functional assessment: PPS: 40% Functional status: dependent on ADLs, IADLs Vital Signs Temp Pulse Resp BP Pulse Ox 36.4 C 55 L 15 151/95 H 93 01/21/17 08:00 01/21/17 08:00 01/21/17 08:00 01/21/17 10:09 01/21/17 08:00 01/20/17 01/21/17 01/22/17 05:59 05:59 05:59 Intake Total 1175 1640 Balance 1175 1640 Physical Exam - Physical Exam General Appearance: no apparent distress Respiratory: No respiratory distress, No accessory muscle use Skin: normal color, warm/dry Extremities: No pedal edema Neuro/Psych: alert, disoriented to person, disoriented to place, disoriented to time, other (occasionally states words. Sleepy) ICD10 Worksheet Patient Problems: Problems Problem Status Onset Dehydration Acute Palliative care encounter Acute UTI (urinary tract infection) Acute Vomiting Acute - ICD10 Problem Qualifiers (1) Palliative care encounter
[2017-01-21] MEDS: LORazepam 2 MG/ML INJ IVP PRN ×2 (15:38→19:49)
[2017-01-21] MEDS: QUEtiapine FUMARATE 25 MG TAB PO SCH (19:50)
[2017-01-22] MEDS: LEVOTHYROXINE 50 MCG TAB PO SCH (06:21)
[2017-01-22] MEDS: ACETAMINOPHEN 325 MG TAB PO PRN (06:21)
[2017-01-22] MEDS: LISINOPRIL 10 MG TAB PO SCH (08:54)
[2017-01-22] MEDS: CALCIUM CARB W/VIT D 500 MG TAB PO SCH (08:54)
[2017-01-22] MEDS: CITALOPRAM 20 MG TAB PO SCH (08:54)
[2017-01-22] MEDS: CHOLECALCIFEROL VIT D3 1,000 UNITS TAB PO SCH (08:54)
[2017-01-22] MEDS: CYANO/VITAMIN B12 1000 MCG TAB PO SCH (08:54)
[2017-01-22] MEDS: ENOXAPARIN 40 MG/0.4 ML SYR SC SCH (08:59)
[2017-01-22] MEDS ORDERED: ACETAMINOPHEN 325 MG TAB PO PRN (10:39)
[2017-01-22] MEDS: BISACODYL 10 MG SUPP PR SCH (11:25)
[2017-01-22] MEDS: ACETAMINOPHEN 500 MG TAB PO SCH ×2 (12:07→19:05)
--- NOTE | 2017-01-22 14:12 | PDPCPN ---
Palliative Care Progress Note Assessment/Plan: HPI: Maryellen Hamm is a 81 yo female with PMH dementia admitted to the hospital s/ p fall with dehydration, UTI, and new right humerus fracture. Antibiotics completed for UTI and re hydrated with IV fluids. Functional status is limited by right arm. Palliative care consulted for complex medical decision making. Maryellen Lyn seen this AM. Awake and sitting up in the chair, still with confusion. Per caregiver pain when moving around, mostly in right hip. Getting tylenol frequently and seems to be helping. Diego feels he understands the plan and had no other questions. They are meeting with hospice at 11:30 to discuss her going home with additional support. Assessment: Physical: - Pain: right arm pain - anayeli tylenol 500mg Q8hr- can likely discontinue in 1-2 weeks when hip heals - norco PRN - constipation - at risk with opiates - bowel regimen with senna and colace Emotional/psychological: occasional "crying fits" per family on celexa. on scheduled seroquel [facility] Advanced Care Planning: Is patient decisional?: no Code Status: DNR POA: Diego is MDPOA Plan: [facility] with hospice care. Subjective: no Objective: Vital Signs Temp Pulse Resp BP Pulse Ox 36.5 C 67 14 153/60 H 92 01/22/17 06:06 01/22/17 09:29 01/22/17 08:11 01/22/17 09:29 01/22/17 06:06 01/21/17 01/22/17 01/23/17 05:59 05:59 05:59 Intake Total 1640 800 200 Balance 1640 800 200 Physical Exam - Physical Exam General Appearance: alert, no apparent distress Respiratory: No respiratory distress, No accessory muscle use Extremities: No pedal edema Neuro/Psych: alert, disoriented to place, disoriented to time ICD10 Worksheet Patient Problems: Problems Problem Status Onset Dehydration Acute Palliative care encounter Acute UTI (urinary tract infection) Acute Vomiting Acute - ICD10 Problem Qualifiers (1) Palliative care encounter
--- NOTE | 2017-01-22 14:37 | HOSPPROG ---
Hospitalist Progress Note Assessment/Plan: 81 yo F with advanced dementia admitted s/p fall with UTI and proximal humeral fracture # UTI: with culture not clearly consistent with infection with 4 different colony types present, has been treated with 5 days of ctx and now off of abx # mechanical fall: occurred in memory care unit where patient has been residing and raising concerns that she may not be safe to return there. Will need at minimum a hospital bed as transferring is challenging. PT/OT/CM involved. # advanced dementia: patient dependent in all of her ADLs, she has very limited ability to communicate. Palliative involved. Plan is for hospice as below. # proximal right humeral fracture: with plan for conservative management given her baseline poor functional status, she is in a splint, f/u with ortho in 4 weeks # hypovolemia: s/p IVF resuscitation and resolved # n/v: resolved # leukocytosis: resolved, in setting of acute fracture and likely uti, stress versus infection # Dispo: IP status, plan to dc to hospice care Subjective: no significant overnight events, patient able to say "hello" and "good for you" but no other ability to communicate Objective: Vital Signs Temp Pulse Resp BP Pulse Ox 36.5 C 67 14 153/60 H 92 01/22/17 06:06 01/22/17 09:29 01/22/17 08:11 01/22/17 09:29 01/22/17 06:06 01/21/17 01/22/17 01/23/17 05:59 05:59 05:59 Intake Total 1640 800 200 Balance 1640 800 200 awake alert nad anicteric mmm rrr no mrg cta b soft nt nd rue in sling no cce warm dry well perfused speech largely non sensical moves all 4 spontaneosly ICD10 Worksheet Patient Problems: Problems Problem Status Onset Dehydration Acute Palliative care encounter Acute UTI (urinary tract infection) Acute Vomiting Acute
[2017-01-22] MEDS: hydrALAZINE 20 MG/ML VIAL IVP PRN (21:41)
[2017-01-22] MEDS: QUEtiapine FUMARATE 25 MG TAB PO SCH (21:41)
[2017-01-22 23:10] VITALS: RESP 16
[2017-01-23] MEDS: ACETAMINOPHEN 500 MG TAB PO SCH ×2 (02:26→11:45)
[2017-01-23 03:45] VITALS: TEMP 97.7
[2017-01-23] MEDS: LEVOTHYROXINE 50 MCG TAB PO SCH (06:01)
[2017-01-23] MEDS: LISINOPRIL 10 MG TAB PO SCH (07:59)
[2017-01-23] MEDS: CALCIUM CARB W/VIT D 500 MG TAB PO SCH (07:59)
[2017-01-23] MEDS: CYANO/VITAMIN B12 1000 MCG TAB PO SCH (08:02)
[2017-01-23] MEDS: ENOXAPARIN 40 MG/0.4 ML SYR SC SCH (08:02)
[2017-01-23] MEDS: CHOLECALCIFEROL VIT D3 1,000 UNITS TAB PO SCH (08:02)
[2017-01-23] MEDS: CITALOPRAM 20 MG TAB PO SCH (08:03)
[2017-01-23 08:11] VITALS: BP 144/68
[2017-01-23 08:23] VITALS: PULSE 59
[2017-01-23 10:07] VITALS: O2SAT 93
--- NOTE | 2017-01-23 11:44 | PDIAF ---
- Medication Management Discharge Medications: Medications to Continue on Transfer Citalopram [CeleXA 20 MG] 20 mg PO DAILY 01/16/17 [Last Taken Unknown] Levothyroxine [Synthroid 50 mcg (*)] 50 mcg PO DAILY06 01/16/17 [Last Taken Unknown] QUEtiapine FUMARATE [Seroquel 25 mg (*)] 25 mg PO HS 01/16/17 [Last Taken Unknown] Hydrocodone/APAP 5/325 [[place] 5/325 (*)] 1 - 2 tab PO Q4HRS PRN #0 tab 01/23/17 [Last Taken Unknown] Discharge Medications: Refer to the Discharge Home Medication list for PRN reason. - Orders Services needed: Home Care, Registered Nurse, Certified Histotechnologist Supervisor Home Care Face to Face: I certify that this patient was under my care and that I had the required [id number] encounter meeting the encounter requirements on the discharge day. My findings support the fact that the patient is homebound as defined in CMS Chapter 7 Medicare Benefits Manual 30.1.1, The condition of the patient is such that there exists a normal inability to leave home and consequently, leaving home would require a considerable and taxing effort. Diet Recommendation: no restrictions on diet - Follow Up Care Current Providers and Referrals: Dallas So MD [Primary Care Provider] - As per Instructions
--- NOTE | 2017-01-23 12:09 | PDIAF ---
- Diagnosis Code Status: Do Not Resuscitate - Medication Management Discharge Medications: Medications to Continue on Transfer Citalopram [CeleXA 20 MG] 20 mg PO DAILY 01/16/17 [Last Taken Unknown] Levothyroxine [Synthroid 50 mcg (*)] 50 mcg PO DAILY06 01/16/17 [Last Taken Unknown] QUEtiapine FUMARATE [Seroquel 25 mg (*)] 25 mg PO HS 01/16/17 [Last Taken Unknown] Hydrocodone/APAP 5/325 [[place] 5/325 (*)] 1 - 2 tab PO Q4HRS PRN #0 tab 01/23/17 [Last Taken Unknown] Discharge Medications: Refer to the Discharge Home Medication list for PRN reason. - Orders Services needed: Home Care, Registered Nurse, Certified Neonatal Doctor Home Care Face to Face: I certify that this patient was under my care and that I had the required [id number] encounter meeting the encounter requirements on the discharge day. My findings support the fact that the patient is homebound as defined in CMS Chapter 7 Medicare Benefits Manual 30.1.1, The condition of the patient is such that there exists a normal inability to leave home and consequently, leaving home would require a considerable and taxing effort. Diet Recommendation: no restrictions on diet - Follow Up Care Current Providers and Referrals: Dallas So MD [Primary Care Provider] - As per Instructions
--- NOTE | 2017-01-23 17:12 | PDDCSUM ---
Discharge Summary Discharge Summary: Dates of service 01/16-01/23/17 Discharge dx: # UTI # advanced dementia # mechanical fall # proximal femur fracture # n/v # hypovolemia Consultations: palliative care, ortho Procedures: none Hospital course by problem: # UTI: with culture not clearly consistent with infection with 4 different colony types present, sp 5 days ctx # mechanical fall: due to advanced dementia and deconditioning, remains high fall risk # advanced dementia: patient with very limited ability to perform his ADLs and communicate, plan for hospice as below # proximal right humeral fracture: with plan for conservative management given her baseline poor functional status, splint for comfort # hypovolemia: s/p IVF resuscitation and resolved # n/v: resolved # leukocytosis: resolved, in setting of acute fracture and likely uti, stress versus infection Dc to hospice Meds see EHR > 35 minutes spent in dc of patient more than half in coordination of care
== END 2017-01-23 12:23 | disposition hospice, home (50) | DRG 563 ==
LOC: EDUNIT# → INTOOBSV 07:45 → F1N 09:02 → OBSVTOIN 01-18 10:31
PROVIDERS: ADMIT Family Medicine; ATTEND Internal Medicine
DX: S42.211A Unspecified displaced fracture of surgical neck of right humerus, initial encounter for closed fracture (principal); S51.011A Laceration without foreign body of right elbow, initial encounter; N39.0 Urinary tract infection, site not specified; F03.90 Unspecified dementia, unspecified severity, without behavioral disturbance, psychotic disturbance, mood disturbance, and anxiety; I10 Essential (primary) hypertension; E86.0 Dehydration; E86.1 Hypovolemia; E03.9 Hypothyroidism, unspecified; W19.XXXA Unspecified fall, initial encounter; Y92.199 Unspecified place in other specified residential institution as the place of occurrence of the external cause; Z51.5 Encounter for palliative care; Z66 Do not resuscitate
CPT/HCPCS: 96365; 97163-GP; 97166-GO; 97530-GP; 97535-GO; G0378; G8978-GP-CM; G8979-GP-CK; G8987-GO-CL; G8988-GO-CL; J0360; J0696; J1650; J2405